=== PATIENT | male | born 1960 | race African-American/Black ===

== ENCOUNTER 2017-05-01 02:19 | Emergency (ER) | payer OTHER ==
[~2017-05-01] VITALS: Ht 177.8 cm; Wt 122.5 kg
--- NOTE | ~2017-05-01 | EKG ---
[address] [address] ELECTROCARDIOGRAM REPORT Name: EMELI WHITLOCK Room #: DEP Oscar#: [id number] Admission: 05/01/17 Attend Phys: Discharge: 05/01/17 Date of : 64 Report #: [id number] THIS REPORT FOR: //name// [facility] ED Test Date: 2017-05-01 Test Time: 02:47:26 Pat Name: EMELI WHITLOCK Department: Room: Gender: M [employer]: SEB : 1960 Requested By: Sergo Monet Order Number: [id number] MD: Deep Rao Measurements Intervals [place] Rate: 71 P: 54 GA: 278 QRS: -70 QRSD: 212 T: 109 QT: 506 QTc: 550 Interpretive Statements Atrial-sensed ventricular-paced rhythm No further analysis attempted due to paced rhythm Baseline wander in lead(s) I,II,aVR Compared to ECG 05/28/2008 06:51:27 Ventricular pacing is now present Electronically Signed On 05-01-2017 7:50:20 CDT by Deep Rao [email or web address] <ELECTRONICALLY SIGNED> By: Deep Rao MD, [facility] 05/01/17 [id number] Deep Rao MD, [facility] /EPI
[2017-05-01] MEDS ORDERED: MUCINEX DM ER1 EAC1 PO (03:18)
[2017-05-01 03:36] LABS: CALCIUM 8.3 mg/dL (8.5-10.1); POTASSIUM 3.9 mmol/L (3.5-5.1)
[2017-05-01] MEDS ORDERED: NORFLEX100 MG PO (04:00)
[2017-05-01] MEDS ORDERED: ULTRAM 50MG TAB50 MG PO (04:00)
[2017-05-01 04:15] VITALS: BP 145/93
== END 2017-05-01 04:16 | disposition home or self-care (01) ==
LOC: ER 02:19
PROVIDERS: Emergency Medicine
DX: R20.2 Paresthesia of skin (principal); E11.9 Type 2 diabetes mellitus without complications; E78.5 Hyperlipidemia, unspecified; I50.9 Heart failure, unspecified; Z98.890 Other specified postprocedural states